=== PATIENT | female | born 1955 | race Caucasian/White ===

== ENCOUNTER 2016-12-23 16:53 | Emergency (ER) | payer OTHER | END 2016-12-23 18:50 | disposition left against medical advice (07) | LOC: UCCORT 16:53 | DX: J02.9 Acute pharyngitis, unspecified (principal); Z53.21 Procedure and treatment not carried out due to patient leaving prior to being seen by health care provider ==

== ENCOUNTER 2017-05-21 19:00 | Emergency (ER) | payer OTHER ==
--- NOTE | 2017-05-21 20:22 | UC ---
Knee Pain HPI - HPI Summary HPI Summary: Patient hit the front of the right knee and has bruising and swelling, ROM and ambulation make it worse. - History of Current Complaint Chief Complaint: UCLowerExtremity Stated Complaint: RIGHT KNEE PAIN Time Seen by Provider: 05/21/17 19:20 Hx Obtained From: Patient Hx Last Menstrual Period: yrs ?: No Onset/Duration: Sudden Onset, Lasting Days Severity Initially: Moderate Severity Currently: Moderate Character: Aching, Stiffness Aggravating Factor(s): Movement, Weight Bearing, Prolonged Standing, Stairs Alleviating Factor(s): Rest Associated Signs And Symptoms: Positive: Negative Able to Bear Weight: Yes - Allergies/Home Medications Allergies/Adverse Reactions: Allergies Allergy/AdvReac Type Severity Reaction Status Date / Time Ephedrine Allergy Severe Tachycardia Verified 05/21/17 19:22 Glipizide Allergy Severe HYPOGLYCEMI Verified 05/21/17 19:22 A Penicillins Allergy Severe Anaphylatic Verified 05/21/17 19:22 Shock Home Medications: Home Medications Allopurinol TAB* [Zyloprim 100 MG TAB*] 100 mg PO DAILY 05/21/17 [History Confirmed 05/21/17] Glimepiride (NF) 2 mg PO DAILY 05/21/17 [History Confirmed 05/21/17] PMH/Surg Hx/FS Hx/Imm Hx Previously Healthy: Yes - Surgical History Surgical History: Yes Surgery Procedure, Year, and Place: eye surgery. [facility]. D&C - Family History Known Family History: Negative: Cardiac Disease, Hypertension - Social History Alcohol Use: Rare Substance Use Type: Prescribed Substance Use Comment - Amount & Last Used: hydrocodoneAPAP Smoking Status (MU): Never Smoked Tobacco Review of Systems Constitutional: Negative Skin: Bruising Eyes: Negative ENT: Negative Respiratory: Negative Cardiovascular: Negative Gastrointestinal: Negative Genitourinary: Negative Motor: Negative Neurovascular: Negative Musculoskeletal: Arthralgia, Decreased ROM, Edema, Myalgia Neurological: Negative Psychological: Negative All Other Systems Reviewed And Are Negative: Yes Physical Exam Triage Information Reviewed: Yes Appearance: Well-Appearing, Pain Distress, Obese Vital Signs: Initial Vital Signs Temp 98.2 F 05/21/17 19:19 Pulse 84 05/21/17 19:19 Resp 18 05/21/17 19:19 BP 139/60 05/21/17 19:19 Pulse Ox 99 05/21/17 19:19 Vital Signs Reviewed: Yes Eye Exam: Normal Eyes: Positive: Conjunctiva Clear ENT Exam: Normal Dental Exam: Normal Neck exam: Normal Respiratory Exam: Normal Cardiovascular Exam: Normal Abdominal Exam: Normal Bowel Sounds: Positive: Present Musculoskeletal: Positive: Strength Limited @, ROM Limited @ - in FLx and EXt, Edema @ - lateral side of patella Neurological Exam: Normal Psychological Exam: Normal Skin: Positive: Other - burising accross patella of right knee Knee Pain Course/Dx - Course Course Of Treatment: hx obtained, exam performed ,meds reviewed, xray obtained and is negative, carola and knee immobilizer given. educated on RICE and referral to ortho given. - Differential Dx/Diagnosis Differential Diagnosis/HQI/PQRI: Bursitis, Sprain, Strain, Tendonitis Provider Diagnoses: knee pain. abormal gait Discharge - Discharge Plan Condition: Stable Disposition: HOME Patient Education Materials: Knee Pain (ED) Referrals: Leandra May MD [Primary Care Provider] - Hari Fernandez MD [Medical Doctor] - Additional Instructions: 1. your xray was negative for bony injury. 2. I receommend rest, ice and elevate, 3. use the immoblizer for support, follow up with ortho if not improving with rest and treatement.
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
[2017-05-21 21:17] VITALS: BP 131/58
== END 2017-05-21 21:35 | disposition home or self-care (01) ==
LOC: UCCORT 19:00
DX: M25.561 Pain in right knee (principal); R26.9 Unspecified abnormalities of gait and mobility
CPT/HCPCS: 99213; G0463

== ENCOUNTER 2017-06-17 10:38 | Emergency (ER) | payer OTHER ==
--- NOTE | 2017-06-17 11:33 | UC ---
Dizzy HPI HPI Summary: 62 YEAR OLD FEMALE PRESENTS WITH SEVERE DIZZINESS, NAUSEA, AND VOMITING. I WILL SEND HER TO THE ER. - History Of Current Complaint Stated Complaint: BAD HEADACHE,VERY WEAK Time Seen by Provider: 06/17/17 11:32 Hx Obtained From: Patient Hx Last Menstrual Period: yrs ?: No Onset/Duration: Sudden Onset Timing: Constant Severity Initially: Severe Severity Currently: Moderate Pain Scale Used: 0-10 Numeric - 5 Character: Head Spinning Aggravating Factor(s): Exertion, Headache Alleviating Factor(s): Rest Associated Signs And Symptoms: Positive: Nausea, Vomiting - Risk Factors Cardiac Risk Factors: Hypertension CVA Risk Factor: Hypertension - Allergies/Home Medications Allergies/Adverse Reactions: Allergies Allergy/AdvReac Type Severity Reaction Status Date / Time Ephedrine Allergy Severe Tachycardia Verified 06/17/17 11:53 Glipizide Allergy Severe HYPOGLYCEMI Verified 06/17/17 11:53 A Penicillins Allergy Severe Anaphylatic Verified 06/17/17 11:53 Shock Home Medications: Home Medications Acetaminophen TAB* [Tylenol TAB*] 1,000 mg PO Q6H PRN 06/17/17 [History Confirmed 06/17/17] PMH/Surg Hx/FS Hx/Imm Hx Previously Healthy: Yes - Surgical History Surgical History: Yes Surgery Procedure, Year, and Place: eye surgery. [facility]. D&C - Family History Known Family History: Negative: Cardiac Disease, Hypertension - Social History Alcohol Use: Rare Substance Use Type: Prescribed Substance Use Comment - Amount & Last Used: hydrocodoneAPAP Smoking Status (MU): Never Smoked Tobacco Review of Systems Constitutional: Fatigue Skin: Negative Eyes: Negative ENT: Negative Respiratory: Negative Cardiovascular: Negative Gastrointestinal: Negative Genitourinary: Negative Motor: Negative Neurovascular: Negative Musculoskeletal: Negative Neurological: Headache Psychological: Negative All Other Systems Reviewed And Are Negative: Yes Physical Exam Triage Information Reviewed: Yes Appearance: Ill-Appearing Eye Exam: Normal ENT Exam: Normal Dental Exam: Normal Neck exam: Normal Neck: Positive: 1 Respiratory Exam: Normal Cardiovascular Exam: Normal Abdominal Exam: Normal Musculoskeletal Exam: Normal Neurological: Positive: Fatigued Psychological Exam: Normal Skin Exam: Normal Dizzy Course/Dx - Differential Dx/Diagnosis Provider Diagnoses: syncope. dizziness Discharge - Discharge Plan Condition: Stable Disposition: HOME Patient Education Materials: Syncope (ED), Lightheadedness (ED), Dizziness (ED) Referrals: Leandra May MD [Primary Care Provider] - Additional Instructions: PLEASE GO TO ER FOR SYNCOPE
[2017-06-17 11:53] VITALS: BP 150/98
== END 2017-06-17 12:09 | disposition home or self-care (01) ==
LOC: UCCORT 10:38
DX: R55 Syncope and collapse (principal); R42 Dizziness and giddiness; R11.2 Nausea with vomiting, unspecified; R51 Headache; R53.83 Other fatigue; Z88.0 Allergy status to penicillin
CPT/HCPCS: 93005; 99211; G0463

== ENCOUNTER 2018-07-13 11:48 | Emergency (ER) | payer OTHER ==
--- OUTSIDE RECORDS SUMMARY | 2018-07-13 13:06 | XMS REPORT ---
:1955 External Reference #:[id number] Author Organization [employer] Address [address] [facility] [place] [address] Phone [phone] Care Team Providers Name Role Phone Hanane Hernández M.D. Primary Care Physician Unavailable Payers Type Date Identification Payment Provider Subscriber Numbers Workers Compensation Onset: Policy Number: Duong Sánchez 11/28/2017 [id number] PayID: [id number] [address] Problems Description No Information Family History Date Family Member(s) Problem(s) Comments General Diabetes General Heart Disease General Cancer General Thalassemia Social History Type Date Description Comments Lives With Spouse Occupation Not Currently Working ETOH Use Rarely consumes alcohol Smoking Patient has never smoked Allergies, Adverse Reactions, Alerts Date Description Reaction Status Severity Comments 06/27/2018 Penicillin active 06/27/2018 Sudafed active Medications Medication Date Status Form Strength Qnty SIG Indications Ordering Provider Hydrocortisone / Active Cream 1% apply Unknown 0000 topically every 6 hours as needed Pantoprazole 0000/ Active Solution 40mg 1 by mouth Unknown Sodium 0000 Rec every day Lisinopril 0000/ Active Tablets 5mg 1 by mouth Unknown 0000 every day Allopurinol 00/00/ Active Tablets 100mg 1 by mouth Unknown 0000 every day Fiber Laxative 0000/ Active Tablets 625mg 1 by mouth Unknown 0000 twice a day Simvastatin 00/00/ Active Tablets 20mg 1 by mouth Unknown 0000 every day Hydrocodone-Aceta 0000/ Active Tablets 5-325mg 1 or 2 Unknown minophen 0000 tabs by mouth every 6-8 hours as needed for pain Ibuprofen / Active Tablets 600mg three Unknown 0000 times a day Precose // Active Tablets 100mg 1 by mouth Unknown 0000 twice a day Metformin HCL / Active Tablets 850mg 1 by mouth Unknown 0000 three times a day Glimepiride / Active Tablets 4mg 1 by mouth Unknown 0000 every day Coq10 / Active Capsules 100mg take 1 by Unknown 0000 mouth 3 x week Vitamin B-12 / Active Tablets 100mcg 1 by mouth Unknown 0000 every day Magnesium / Active Tablets 400mg 1 by mouth Unknown 0000 every day Phenazopyridine / Active Tablets 100mg 1 tablet Unknown HCL 0000 by mouth three times a day as needed for 3 days. Centrum Silver / Active Tablets 1 by mouth Unknown 0000 every day Nystatin / Hx Cream [id number] topically Unknown 0000 - t/GM twice a day as 2018 needed Docqlace // Hx Capsules 100mg 2 by mouth Unknown 0000 - twice a 2018 Claritin / Hx Capsules 10mg 1 by mouth Unknown 0000 - every day 2017 Amitriptyline HCL / Hx Tablets 10mg 2 at bed Unknown 0000 - 2017 Vital Signs Date Vital Result Comment 07/09/2018 Height 65 inches 5'5" Weight 240.00 lb BP Systolic Sitting 124 mmHg BP Diastolic Sitting 66 mmHg Respiratory Rate 16 /min Pain Level 3 BMI (Body Mass Index) 39.9 kg/m2 06/27/2018 Height 65 inches 5'5" Weight 242.00 lb BP Systolic Sitting 120 mmHg BP Diastolic Sitting 74 mmHg Respiratory Rate 17 /min Pain Level 4 BMI (Body Mass Index) 40.3 kg/m2 Results Description No Information Procedures Description No Information Plan of Care 07/09/2018 - Hari Fernandez, [id number] Other synovitis and tenosynovitis, left shoulderFollow up:Follow up: As needed
--- OUTSIDE RECORDS SUMMARY | 2018-07-13 13:06 | XMS REPORT ---
:1955 External Reference #:[id number] Author Organization [employer] Address [address] [place] [address] Phone [phone] Care Team Providers Name Role Phone Hanane Hernández M.D. Primary Care Physician Unavailable Payers Type Date Identification Payment Provider Subscriber Numbers Workers Compensation Onset: Policy Number: Duong Sánchez 11/28/2017 [id number] PayID: [id number] [address] Problems Description No Information Family History Date [...] 600mg three Unknown 0000 times a day Amitriptyline HCL / Active Tablets 10mg 2 at bed Unknown 0000 Precose 00/00/ Active Tablets 100mg 1 by mouth Unknown 0000 twice a day Metformin HCL 00/ Active Tablets 850mg 1 by mouth Unknown 0000 twice a day Glimepiride 00/ Active Tablets 4mg 1 by mouth Unknown 0000 every day Coq10 // Active Capsules 100mg take 1 by Unknown [...] 0000 every day Nystatin / Hx Cream [id number] topically Unknown 0000 - t/GM twice a day as 2018 needed Docqlace / Hx Capsules 100mg 2 by mouth Unknown 0000 - twice a 2018 Claritin / Hx Capsules 10mg 1 by mouth Unknown 0000 - every day 2017 Vital Signs Date Vital Result Comment 06/27/2018 Height 65 inches 5'5" Weight 242.00 lb BP Systolic Sitting 120 mmHg BP Diastolic Sitting 74 mmHg Respiratory Rate 17 /min Pain Level 4 BMI (Body Mass Index) 40.3 kg/m2 Results Description No Information Procedures Description No Information Plan of Care 06/27/2018 - Roberto Rudolph M.D.[id number] Strain unsp musc/fasc/tend at shldr/up arm , left arm, initFollow up:Follow up: Primary care OK to move through some pains to get your movements back in your neck, shoulder blades, shoulders, and chest wall. OK to use ice, heat, and ibuprofen when needed Continue all daily activities as able.M65.812 Other synovitis and tenosynovitis, left shoulder
[2018-07-13 13:58] VITALS: BP 144/67
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
--- NOTE | 2018-07-13 15:07 | RAD ---
Indication: Left hip pain. 2 views of left hip and an AP view of the pelvis demonstrates no fracture. Degenerative changes of left hip are noted. Pelvic ring is intact. IMPRESSION: Degenerative changes of the left hip without fracture.
--- NOTE | 2018-07-13 15:08 | RAD ---
Indication: Back pain. 5 views of lumbar spine demonstrate vertebral bodies to be normal in height. Disc spaces all well-preserved. Disc space narrowing at L4-L5 and L5-S1 is noted. No fracture is noted. IMPRESSION: Degenerative disc disease at L4-L5 and L5-S1.
== END 2018-07-13 15:56 | disposition home or self-care (01) ==
LOC: UCCORT 11:48
DX: N39.0 Urinary tract infection, site not specified (principal); S39.012A Strain of muscle, fascia and tendon of lower back, initial encounter; V89.2XXA Person injured in unspecified motor-vehicle accident, traffic, initial encounter; Y93.89 Activity, other specified; Y92.9 Unspecified place or not applicable; M51.36 Other intervertebral disc degeneration, lumbar region; M51.37 Other intervertebral disc degeneration, lumbosacral region; M16.12 Unilateral primary osteoarthritis, left hip; Z88.0 Allergy status to penicillin; I10 Essential (primary) hypertension; Z88.8 Allergy status to other drugs, medicaments and biological substances
CPT/HCPCS: 72110; 81003; 87086; 99212; G0463

== ENCOUNTER 2018-12-31 12:26 | Emergency (ER) | payer OTHER ==
[2018-12-31 13:16] VITALS: BP 134/69
--- NOTE | 2018-12-31 13:26 | UC ---
Lower Extremity/Ankle HPI - HPI Summary HPI Summary: right ankle pain x 2 hrs s/p fall on ice 2 hrs ago , injury to right ankle and foot. mild swelling, pain is lateral right ankle, no radiation, worse with walking and movement, better with rest, and elevation - History of Current Complaint Chief Complaint: UCLowerExtremity Stated Complaint: SP FALL-RT FOOT INJURY Time Seen by Provider: 12/31/18 13:16 Hx Obtained From: Patient Hx Last Menstrual Period: yrs Onset/Duration: Sudden Onset, Lasting Hours - 2, Still Present Severity Initially: Moderate Severity Currently: Moderate Pain Intensity: 6 Aggravating Factor(s): Standing, Ambulation Alleviating Factor(s): Rest, Elevation, Ice Able to Bear Weight: Yes - Allergies/Home Medications Allergies/Adverse Reactions: Allergies Allergy/AdvReac Type Severity Reaction Status Date / Time ephedrine Allergy Tachycardia Verified 12/31/18 13:12 glipizide Allergy See Comment Verified 12/31/18 13:12 Penicillins Allergy Anaphylatic Verified 12/31/18 13:12 Shock CONTRAST Allergy Hives Uncoded 12/31/18 13:12 Home Medications: Home Medications Aspirin [Baron Aspirin EC Low Dose 81 MG] 81 mg PO DAILY 12/31/18 [History Confirmed 12/31/18] Calcium Polycarbophil [Fiber Lax] 625 mg PO DAILY 12/31/18 [History Confirmed ] Cyanocobalamin TAB* [Vitamin B12 TAB*] 500 mcg PO DAILY 12/31/18 [History Confirmed 12/31/18] Glimepiride 1 tab PO DAILY 12/31/18 [History Confirmed 12/31/18] Hydrocodone/Acetaminophen [Hydrocodone/Acetaminophen 10-325 mg] 1 tab PO Q6H [History Confirmed 12/31/18] Ibuprofen TAB* [Motrin TAB* 600 MG] 600 mg PO Q6H PRN 12/31/18 [History Confirmed 12/31/18] Lisinopril TAB* [Prinivil TAB*] 5 mg PO DAILY 12/31/18 [History Confirmed ] Magnesium Oxide [Magnesium] 400 mg PO DAILY 12/31/18 [History Confirmed 12/31/18 ] Multivit-Min/Iron/Folic/Lutein [Centrum Silver Women Tablet] 1 each PO DAILY [History Confirmed 12/31/18] Pantoprazole TAB * [Protonix TAB*] 40 mg PO DAILY 12/31/18 [History Confirmed ] Simvastatin [Zocor 5 MG-] 10 mg PO DAILY 12/31/18 [History Confirmed 12/31/18] metFORMIN* [Glucophage 1000 MG TAB *] 1,000 mg PO BID 12/31/18 [History Confirmed 12/31/18] PMH/Surg Hx/FS Hx/Imm Hx Endocrine History: Diabetes Cardiovascular History: Cardiac Disease, Hypertension - Surgical History Surgical History: Yes Surgery Procedure, Year, and Place: [facility]. D&C - Family History Known Family History: Positive: Cardiac Disease, Hypertension, Diabetes - Social History Alcohol Use: Rare Substance Use Type: None Substance Use Comment - Amount & Last Used: hydrocodoneAPAP Smoking Status (MU): Never Smoked Tobacco Review of Systems All Other Systems Reviewed And Are Negative: Yes Constitutional: Positive: Negative Skin: Positive: Negative Eyes: Positive: Negative ENT: Positive: Negative Respiratory: Positive: Negative Is Patient Immunocompromised?: No Physical Exam Triage Information Reviewed: Yes Appearance: Pain Distress, Obese Vital Signs: Initial Vital Signs Temp 97.9 F 12/31/18 13:11 Pulse 72 12/31/18 13:11 Resp 16 12/31/18 13:11 BP 134/69 12/31/18 13:11 Pulse Ox 100 12/31/18 13:11 Vital Signs Reviewed: Yes Eye Exam: Normal Eyes: Positive: Conjunctiva Clear ENT: Positive: Normal ENT inspection, Hearing grossly normal, Pharynx normal Neck exam: Normal Neck: Positive: Supple, Nontender, No Lymphadenopathy Respiratory: Positive: Chest non-tender, Lungs clear, Normal breath sounds Cardiovascular: Positive: RRR, No Murmur, Pulses Normal Musculoskeletal: Positive: Other: - right ankle : mild swelling lateral ankle , + tenderness lateral ankle, pain with any ROM normal Foot exam Diagnostics - Laboratory Diagnostic Studies Completed/Ordered: right ankle xray : IMPRESSION: Evidence of prior injury in the medial malleolus without definite evidence of. recent fracture. Lower Extremity Course/Dx - Differential Dx/Diagnosis Provider Diagnosis: Sprain of right ankle Discharge - Sign-Out/Discharge Documenting (check all that apply): Patient Departure All imaging exams completed and their final reports reviewed: Yes - Discharge Plan Condition: Stable Disposition: HOME Patient Education Materials: Ankle Sprain (ED) Referrals: Connie Hurley MD [Primary Care Provider] - 7 Days - Billing Disposition and Condition Condition: STABLE Disposition: Home
== END 2018-12-31 14:08 | disposition home or self-care (01) ==
LOC: UCCORT 12:26
DX: S93.401A Sprain of unspecified ligament of right ankle, initial encounter (principal); E11.9 Type 2 diabetes mellitus without complications; I10 Essential (primary) hypertension; Z79.82 Long term (current) use of aspirin; Z79.899 Other long term (current) drug therapy; W00.0XXA Fall on same level due to ice and snow, initial encounter; Y92.9 Unspecified place or not applicable
CPT/HCPCS: 99213; G0463

== ENCOUNTER 2019-11-11 09:33 | Emergency (ER) | payer MEDICARE, MEDICAID ==
[2019-11-11 09:58] VITALS: BP 131/79
--- NOTE | 2019-11-11 10:10 | UC ---
Complaint Female HPI - HPI Summary HPI Summary: 64 year old female with PMH + for DM presents with swelling, redness, pain on right inner thigh/ outer vaginal labia x 3 days. no fever, chills. noted today started draining small amount. no prior history of cellulitis/ abscess, no MRSA - History Of Current Complaint Chief Complaint: UCSkin Stated Complaint: PERSONAL Time Seen by Provider: 11/11/19 09:59 Hx Obtained From: Patient, Family/Talent Acquisition Director - spouse Hx Last Menstrual Period: yrs ?: No Onset/Duration: Sudden Onset, Lasting Days - 2-3 Timing: Constant Severity Currently: Mild Pain Intensity: 0 Pain Scale Used: 0-10 Numeric Aggravating Factor(s): Movement Associated Signs And Symptoms: Negative: Fever, Back Pain, Vaginal Bleeding/ Discharge, Vaginal Discharge, Nausea, Vomiting(# Of Episodes =), Genital Swelling, Genital Blisters - Allergies/Home Medications Allergies/Adverse Reactions: Allergies Allergy/AdvReac Type Severity Reaction Status Date / Time ephedrine Allergy Tachycardia Verified 11/11/19 09:52 glipizide Allergy See Comment Verified 11/11/19 09:52 Penicillins Allergy Anaphylatic Verified 11/11/19 09:52 Shock CONTRAST Allergy Hives Uncoded 11/11/19 09:52 Home Medications: Home Medications Allopurinol TAB* [Zyloprim 100 MG TAB*] 100 mg PO DAILY 11/11/19 [History Confirmed 11/11/19] Canagliflozin/Metformin HCl [Invokamet 150-1000 mg] 1 tab PO 11/11/19 [History Confirmed 11/11/19] Docusate CAP* [Colace Cap*] 100 mg PO DAILY 11/11/19 [History Confirmed 11/11/19 ] L.acidoph,Paracasei, B.lactis [Probiotic] 1 each PO DAILY 11/11/19 [History Confirmed 11/11/19] Metoprolol Succinate XL TAB* [Toprol XL TAB*] 25 mg PO DAILY 11/11/19 [History Confirmed 11/11/19] Rosuvastatin Calcium 20 mg PO DAILY 11/11/19 [History Confirmed 11/11/19] Sertraline* [Zoloft*] 50 mg PO DAILY 11/11/19 [History Confirmed 11/11/19] Ubidecarenone [Coq10] 100 mg PO DAILY 11/11/19 [History Confirmed 11/11/19] PMH/Surg Hx/FS Hx/Imm Hx Previously Healthy: Yes Endocrine History: Diabetes - typical BS 120-140, past 2 days 220's Cardiovascular History: Hypertension - Surgical History Surgical History: Yes Surgery Procedure, Year, and Place: CHOLECYSTECTOMY 1991 - Family History Known Family History: Positive: Cardiac Disease, Hypertension, Diabetes - Social History Occupation: Retired Alcohol Use: Rare Substance Use Type: None Substance Use Comment - Amount & Last Used: hydrocodoneAPAP Smoking Status (MU): Never Smoked Tobacco Review of Systems All Other Systems Reviewed And Are Negative: Yes Constitutional: Negative: Negative, Fever, Chills Skin: Positive: Rash, Other - drainage, swelling Gastrointestinal: Positive: Negative Genitourinary: Positive: Negative Neurological: Positive: Negative Psychological: Positive: Negative Is Patient Immunocompromised?: No Physical Exam Triage Information Reviewed: Yes Appearance: Well-Appearing, No Pain Distress, Well-Nourished Vital Signs: Initial Vital Signs Temp 97.1 F 11/11/19 09:53 Pulse 101 11/11/19 09:53 Resp 18 11/11/19 09:53 BP 131/79 11/11/19 09:53 Pulse Ox 98 11/11/19 09:53 Vital Signs Reviewed: Yes Eyes: Positive: Conjunctiva Clear ENT: Positive: Hearing grossly normal Musculoskeletal: Positive: Strength Intact Neurological: Positive: Alert Psychological: Positive: Normal Response To Family Skin: Positive: Other - indurated, mild erythema of lateral external labia, right side, with small pinpoint opening drainage purulent fluid, obtained for culture. indurated region extending ~ 4cm x 3cm. no LAD palpable. internal labia, vaginal area clear without tenderness, drainage. neg batholin cyst abn b/l. attempted needle drainage near second small area of fluctuance, no driange noted. no tracking noted, no other areas of fluctuance. Procedures - Incision and Drainage Right Upper Medial Proximal Thigh Site: inner thigh right Anesthesia: Other - none Instrument(s): Needle Packing: Other - none Complaint Female Dx - Course Course Of Treatment: Cellulitis, right inner thigh extending into external labia Drainage from small area, purulent, sent for cultures. Needle I&D attempted at second side, no drainage noted. - Keep area dry, clean several times a day - [place] area with water bottle to keep opening drainage 3-4 times a day - Antibiotics as directed - should note improvement within 48 hours - Return with increased pain, fever, chills, decreased walking. - Differential Dx/Diagnosis Differential Diagnosis/HQI/PQRI: Urinary Tract Infection Provider Diagnosis: Cellulitis Discharge ED - Sign-Out/Discharge Documenting (check all that apply): Patient Departure All imaging exams completed and their final reports reviewed: No Studies - Discharge Plan Condition: Fair Disposition: HOME Prescriptions: Sulfamethox/Trimethoprim DS* [Bactrim DS 800/160 TAB*] 1 tab PO BID #14 tab Patient Education Materials: Cellulitis (DC) Referrals: Connie Hurley MD [Primary Care Provider] - Additional Instructions: - Keep area dry, clean several times a day - [place] area with water bottle to keep opening drainage 3-4 times a day - Antibiotics as directed - should note improvement within 48 hours - Return with increased pain, fever, chills, decreased walking. - Billing Disposition and Condition Condition: FAIR Disposition: Home
== END 2019-11-11 10:43 | disposition home or self-care (01) ==
LOC: UCCORT 09:33
DX: L03.115 Cellulitis of right lower limb (principal); E11.9 Type 2 diabetes mellitus without complications; I10 Essential (primary) hypertension; Z79.84 Long term (current) use of oral hypoglycemic drugs; Z79.899 Other long term (current) drug therapy; Z88.8 Allergy status to other drugs, medicaments and biological substances; Z88.0 Allergy status to penicillin; Z91.041 Radiographic dye allergy status
CPT/HCPCS: 10060; 87070; 87077; 87205; 87640; 87641; 99212; G0463